=== PATIENT | female | born 1955 | race Caucasian/White ===

== ENCOUNTER 2017-08-18 13:15 | Outpatient (CLI) | payer BC | END 2017-08-18 13:16 | disposition home or self-care (01) | LOC: BICRAD 13:15 | PROVIDERS: ATTEND Family Medicine | DX: R05 Cough (principal) | CPT/HCPCS: 71046 ==

== ENCOUNTER 2017-10-13 15:25 | Outpatient (CLI) | payer OTHER | END 2017-10-13 15:26 | disposition home or self-care (01) | LOC: DTY/OP 15:25 | PROVIDERS: ATTEND Specialist | DX: Z01.818 Encounter for other preprocedural examination (principal); E66.01 Morbid (severe) obesity due to excess calories | CPT/HCPCS: 97802 ==

== ENCOUNTER 2017-12-23 12:00 | Inpatient (IN) | payer BC ==
[2017-12-29] MEDS ORDERED: Heparin 5,000 UNITS/ML VIAL ONE (06:08)
[2017-12-29] MEDS ORDERED: Scopolamine 1.5 mg/72 hour Patch ONE (06:09)
[2017-12-29] MEDS ORDERED: Ketorolac Tromethamine 30 MG/ML VIAL ONE (06:09)
[2017-12-29] MEDS ORDERED: cefOXitin 2 GM in Sodium Chloride 0.9% 100 ML IVPB SCH (06:15)
[2017-12-29] MEDS ORDERED: Bupivacaine/Epinephrine 0.25% 30 ML VIAL ONE (06:53)
[2017-12-29] MEDS ORDERED: Fentanyl 100 MCG/2 ML VIAL ONE ×2 (07:05→10:43)
[2017-12-29] MEDS ORDERED: Dexmedetomidine 200 MCG/2 ML VIAL ONE (07:05)
[2017-12-29] MEDS ORDERED: Midazolam HCl 2 mg/2 ml Vial ONE ×2 (07:09→10:22)
[2017-12-29] MEDS ORDERED: Phenylephrine HCL 10 MG/ML VIAL ONE (09:18)
[2017-12-29] MEDS ORDERED: Ondansetron HCl/PF 4 MG/2 ML Vial IVP PRN ×2 (10:24→11:40)
[2017-12-29] MEDS ORDERED: Morphine Sulfate 2 MG/ML SYRINGE SLOW IVP PRN (10:24)
[2017-12-29] MEDS ORDERED: Promethazine HCl 25 MG/ML VIAL SLOW IVP PRN (10:24)
[2017-12-29] MEDS ORDERED: Promethazine HCl 25 MG/ML VIAL IM PRN ×2 (10:24→11:40)
[2017-12-29] MEDS ORDERED: diphenhydrAMINE 50 MG/ML VIAL IVP PRN (11:40)
[2017-12-29] MEDS ORDERED: Dextrose 5% in Water 1,000 ML IV PRN (11:40)
[2017-12-29] MEDS ORDERED: hydrALAZINE 20 MG/ML VIAL SLOW IVP PRN (11:40)
[2017-12-29] MEDS ORDERED: Hydrocodone-Acetamin 15 ML UDCUP PO PRN (11:40)
[2017-12-29] MEDS ORDERED: Dextrose 50% Abboject 50 ML SYRINGE SLOW IVP PRN (11:40)
[2017-12-29 12:04] VITALS: BMI 36.5
--- NOTE | 2017-12-29 12:15 | OP ---
DATE OF PROCEDURE: 12/29/2017 PREOPERATIVE DIAGNOSIS: Morbid obesity. POSTOPERATIVE DIAGNOSIS: Morbid obesity. OPERATION PERFORMED: Laparoscopic vertical sleeve gastrectomy using the ViSiGi device. SURGEON: Dr. Uriel Skaggs. ANESTHESIA: General endotracheal. INDICATIONS: The patient is a 62-year-old white female. She presents with a long history of obesity. She has undergone preoperative evaluation and education and is taken to the operating room at this time for sleeve gastrectomy. DESCRIPTION OF OPERATION: Informed consent was obtained. The patient was taken to the operating room where general endotracheal anesthesia obtained with the patient in supine position. Abdomen was prepped with ChloraPrep and draped in sterile fashion. Local anesthetic was infiltrated and 5 mm supraumbilical incision was created through which Veress needle was passed to the peritoneal cavity and pneumoperitoneum established using carbon dioxide up to a pressure of 15 mmHg. A 5 mm trocar port was passed through this same incision. Laparoscopic camera was passed through this port. Under direct vision, 4 additional ports were placed including bilateral 5 mm subcostal ports, a 12 mm right paramedian port and a 15 mm left paramedian port. A 5 mm epigastric incision was created through which Nathansen retractor was passed into the abdominal cavity and used to retract the left lobe of the liver. The patient was placed into reverse Trendelenburg position. The ViSiGi device was advanced within the stomach and used to decompress this. The pylorus was identified and beginning 4 cm proximal to the pylorus, the omentum and vascular tissue along the greater curvature was divided using the LigaSure in an ascending fashion up to the angle of His. All posterior adhesions were mobilized. The short gastric vessels were carefully divided and then hemostasis was maintained using the LigaSure. Once this was completely mobilized, the ViSiGi was carefully positioned at the level of the pylorus and placed to suction, which was clearly defining the lesser curvature of the stomach. The gastrectomy was then performed using a series of fires of the Trooper stapler using a green load followed by a gold load and a series of blue loads until completion of the gastrectomy. The ViSiGi along the lesser curvature was used as a size 36 bougie to guide in the gastric division. Care was taken to avoid narrowing the incisura or the gastroesophageal junction. The integrity of the staple line was then assessed by insufflating gas through the ViSiGi while irrigating along the staple line. There was no evidence of an air leak. There was no evidence of bleeding along the staple line. The resected stomach was then removed through the 15 mm port and the fascia was closed with 0 Vicryl suture using a GraNee needle. I then closed the 12 mm port also using the GraNee needle and 0 Vicryl suture. The Nathansen retractor was removed. All ports and instruments were removed under direct vision. All irrigant was aspirated. Pneumoperitoneum was carefully evacuated. Quarter percent Marcaine with epinephrine was infiltrated into each port site. Skin edges approximated with 4-0 Monocryl subcuticular suture. Dermabond was placed externally. There were no complications. The patient tolerated the procedure well and was taken to recovery room in stable condition. FINDINGS: The patient, in spite of preoperative weight loss, has a fattier than usual liver. There was certainly an instrument related injury to the right lobe of the liver that required cautery. There was additionally some bleeding from the left tip of the liver. There was also some bleeding from the superior aspect of the spleen. This was controlled with Kody. The liver bleeding was controlled with electrocautery. Minor staple line oozing was controlled with hemaclip application. There were no complications. Blood loss was negligible. Patient tolerated the procedure well and was taken to recovery room in stable condition. TERA
[2017-12-29] MEDS: Ketorolac Tromethamine 30 MG/ML VIAL IVP SCH ×2 (12:23→17:25)
[2017-12-29] MEDS: D5 1/2 NS w/20 mEq KCL 1,000 ML IV SCH ×2 (12:24→19:28)
[2017-12-29] MEDS ORDERED: Glycopyrrolate 0.2 MG/ML 5 ML SYRINGE ONE (14:42)
[2017-12-29] MEDS ORDERED: PHENYLEPHRINE-NS 100 MCG/ML 10 ML SYRINGE ONE (14:42)
[2017-12-29] MEDS ORDERED: ePHEDrine/0.9% NaCl/PF SYRINGE 50 mg/10 ml ONE (14:42)
[2017-12-29] MEDS ORDERED: Ondansetron HCl/PF 4 MG/2 ML Vial ONE (14:42)
[2017-12-29] MEDS ORDERED: Dexamethasone 20 MG/5 ML VIAL ONE (14:42)
[2017-12-29] MEDS ORDERED: Lidocaine 1% PF 5 ML VIAL ONE (14:42)
[2017-12-29] MEDS ORDERED: PROPOFOL 200 MG/20 ML VIAL ONE (14:42)
[2017-12-30 05:12] LABS: #Eosinphils 0.1 thou/uL (0.0-0.7); #Lymphocytes 1.3 thou/uL (1.20-3.40); #Monocytes 0.9 thou/uL (0.11-0.59); #Neutrophils 10.6 thou/uL (1.40-6.50); %Basophils 0.1 % (0.0-1.0); %Eosinophils 0.5 % (0.0-10.0); %Lymphocytes 9.8 % (21.0-51.0); %Monocytes 7.1 % (0.0-10.0); %Neutrophils 82.6 % (42.0-75.0); Hemoglobin 11.9 g/dL (12.0-16.0); Mean Corpuscular HGB CONC 33.3 g/dL (32.0-36.0); Mean Corpuscular Hemoglobin 29.9 pg (27.0-31.0); Mean Corpuscular Volume 89.7 fl (81.0-99.0); Mean Platelet Volume 8.3 fL (7.4-10.4); Platelet Count 236 thou/uL (130-400); RBC Distribution Width 12.1 % (11.5-14.5); Red Blood Cell (RBC) Count 3.98 mill/uL (4.20-5.40); White Blood Cell (WBC) Count 12.9 thou/uL (4.8-10.8)
[2017-12-30] MEDS: Ketorolac Tromethamine 30 MG/ML VIAL IVP SCH ×3 (05:33→11:30)
[2017-12-30 05:35] LABS: Anion Gap 12 mmol/L (10-20); BUN (Urea Nitrogen) 9 mg/dL (9.8-20.1); Calc. Creatinine Clearance 104 mL/min (70-130); Calcium 9.1 mg/dL (7.8-10.44); Carbon Dioxide 25 mmol/L (23-31); Chloride 105 mmol/L (98-107); Estimated GFR-MDRD 68; Glucose 116 mg/dL (80-115); Potassium 3.9 mmol/L (3.5-5.1); Sodium 138 mmol/L (136-145)
[2017-12-30] MEDS: D5 1/2 NS w/20 mEq KCL 1,000 ML IV SCH (06:48)
[2017-12-30] MEDS ORDERED: Pantoprazole 40 MG VIAL IVP SCH (09:00)
[2017-12-30] MEDS ORDERED: Enoxaparin Sodium 40 MG/0.4 ML SYRINGE SC SCH (09:00)
[2017-12-30 11:57] VITALS: BP 134/76; TEMP 98.5
== END 2017-12-30 12:21 | disposition home or self-care (01) | DRG 621 ==
LOC: SURG A 12-29 05:53
PROVIDERS: ADMIT Specialist; ATTEND Specialist
PROC: 0DB64Z3 Excision of Stomach, Percutaneous Endoscopic Approach, Vertical (ICD-10-PCS; principal; 2017-12-29)
DX: E66.01 Morbid (severe) obesity due to excess calories (principal); Z68.36 Body mass index [BMI] 36.0-36.9, adult; K21.9 Gastro-esophageal reflux disease without esophagitis; I10 Essential (primary) hypertension
CPT/HCPCS: 36415; 80048; 85025; 88307; 88312; C9113; J0131; J0694; J1100; J1644; J1650; J1885; J2001; J2250; J2270; J2370; J2405; J2704; J3010; J7050

== ENCOUNTER 2017-12-23 12:46 | Outpatient (CLI) | payer BC | END 2017-12-23 12:47 | disposition home or self-care (01) | LOC: LABBT 12:46 | PROVIDERS: ATTEND Specialist | DX: Z01.810 Encounter for preprocedural cardiovascular examination (principal); E66.01 Morbid (severe) obesity due to excess calories | CPT/HCPCS: 93005; 93010 ==

== ENCOUNTER 2018-06-08 09:01 | Outpatient (CLI) | payer BC ==
--- NOTE | 2018-06-08 10:04 | BD ---
BONE DENSITOMETRY USING DEXA: Date: 06/08/18 HISTORY: Postmenopausal screening for osteoporosis. FINDINGS: Lumbar Spine: BMD (g/cm2) L1 0.936 T-Score: -0.5 Z-Score: 1.0 L2 0.987 T-Score: -0.4 Z-Score: 1.3 L3 0.937 T-Score: -1.3 Z-Score: 0.4 L4 1.017 T-Score: -0.4 Z-Score: 1.4 L1-L4 0.971 T-Score: -0.7 Z-Score: 1.0 Femoral Neck: 0.864 T-Score: -0.1 Z-Score: 1.6 Total Femur: 1.158 T-Score: 1.8 Z-Score: 2.9 IMPRESSION: Normal bone mineral density. No evidence of osteopenia/osteoporosis. POS: [facility]
== END 2018-06-08 09:02 | disposition home or self-care (01) ==
LOC: BICMAMMO 09:01
PROVIDERS: ATTEND Family Medicine
DX: Z12.31 Encounter for screening mammogram for malignant neoplasm of breast (principal); Z13.820 Encounter for screening for osteoporosis
CPT/HCPCS: 77063; 77067; 77080

== ENCOUNTER 2018-07-30 16:51 | Emergency (ER) | payer BC ==
[2018-07-30 17:27] LABS: #Lymphocytes 0.7 thou/uL (1.20-3.40); #Monocytes 0.4 thou/uL (0.11-0.59); #Neutrophils 8.7 thou/uL (1.40-6.50); %Basophils 0.3 % (0.0-1.0); %Eosinophils 0.4 % (0.0-10.0); %Lymphocytes 6.7 % (21.0-51.0); %Neutrophils 88.6 % (42.0-75.0); Hemoglobin 14.1 g/dL (12.0-16.0); Mean Corpuscular HGB CONC 33.3 g/dL (32.0-36.0); Mean Corpuscular Hemoglobin 29.3 pg (27.0-31.0); Mean Corpuscular Volume 87.9 fL (78.0-98.0); Mean Platelet Volume 8.6 fL (7.4-10.4); Platelet Count 232 thou/uL (130-400); RBC Distribution Width 11.8 % (11.5-14.5); Red Blood Cell (RBC) Count 4.82 mill/uL (4.20-5.40); White Blood Cell (WBC) Count 9.8 thou/uL (4.8-10.8)
[2018-07-30 17:45] LABS: ALT (SGPT) 210 U/L (8-55); AST (SGOT) 480 U/L (5-34); Albumin 4.3 g/dL (3.4-4.8); Alkaline Phosphatase 128 U/L (40-150); Anion Gap 15 mmol/L (10-20); BUN (Urea Nitrogen) 12 mg/dL (9.8-20.1); Calc. Creatinine Clearance 0 mL/min (70-130); Calcium 9.8 mg/dL (7.8-10.44); Carbon Dioxide 23 mmol/L (23-31); Chloride 104 mmol/L (98-107); Estimated GFR-MDRD 69; Globulin 3.3 g/dL (2.4-3.5); Glucose 161 mg/dL (80-115); Lipase 27 U/L (8-78); Potassium 3.7 mmol/L (3.5-5.1); Protein, Total 7.6 g/dL (6.0-8.3); Sodium 138 mmol/L (136-145)
[2018-07-30 18:20] LABS: Bilirubin Small (Negative); Blood, Urine Negative (Negative); Clarity CLEAR (Clear); Glucose, Urine (Dipstick) Negative (Negative); Leukocyte Small (Negative); Nitrite Negative (Negative); Protein, Urine (Dipstick) Negative (Neg-Trace); Specific Gravity, Urine 1.024 (1.002-1.036)
[2018-07-30 18:21] LABS: Bacteria/HPF None Seen HPF (None Seen); Hyaline Casts/LPF 0-3 HYALINE CAST LPF (0-3 Hyaline); Pathc Cast-AUWi Flag 0.14 (0-2.49); Squamous Epithelial 0-3 HPF (0-3); WBC/HPF 0-3 HPF (0-3)
--- NOTE | 2018-07-30 20:06 | ULT ---
GALLBLADDER ULTRASOUND: CLINICAL HISTORY: Right upper quadrant pain. FINDINGS: There is moderate distention of the gallbladder. There are small, mobile gallstones seen within the lumen. A moderate area of pericholecystic edema is seen. Telles sign is reported as negative by the quality control engineer. The common duct is normal, measuring 3 mm. The gallbladder wall is borderline, approx imating 3 mm in thickness. IMPRESSION: Moderate distention of the gallbladder with cholelithiasis and mild pericholecystic edema. Recommend clinical correlation for evidence of cholecystitis. POS: [facility]
== END 2018-07-30 20:12 | disposition home or self-care (01) ==
LOC: ERS 16:51
DX: K80.20 Calculus of gallbladder without cholecystitis without obstruction (principal)
CPT/HCPCS: 36415; 76705; 80053; 81003; 81015; 83690; 84484; 85025; 93005; 96360

== ENCOUNTER 2018-08-03 07:10 | Day surgery (SDC) | payer BC ==
[2018-08-02 17:23] VITALS: BMI 30.4
[2018-08-03] MEDS ORDERED: CEFAZOLIN 2 GM/50 ML BAG ONE (07:47)
[2018-08-03] MEDS ORDERED: Ketorolac Tromethamine 30 MG/ML VIAL ONE (07:47)
[2018-08-03] MEDS ORDERED: Bupivacaine/Epinephrine 0.25% 30 ML VIAL ONE (08:48)
[2018-08-03] MEDS ORDERED: Fentanyl 100 MCG/2 ML VIAL ONE (09:00)
[2018-08-03] MEDS ORDERED: Midazolam HCl 2 mg/2 ml Vial ONE (09:00)
[2018-08-03] MEDS ORDERED: SUGAMMADEX SODIUM 200 MG/2 ML VIAL ONE (10:01)
[2018-08-03] MEDS ORDERED: HYDROcodone/Acetaminophen 5/325 mg Tablet ONE (11:53)
[2018-08-03] MEDS ORDERED: PROPOFOL 200 MG/20 ML VIAL ONE (14:02)
[2018-08-03] MEDS ORDERED: Ondansetron PF 4 MG/2 ML Vial ONE (14:02)
[2018-08-03] MEDS ORDERED: Glycopyrrolate 0.2 MG/ML 5 ML SYRINGE ONE (14:02)
[2018-08-03] MEDS ORDERED: Dexamethasone 20 MG/5 ML VIAL ONE (14:02)
[2018-08-03] MEDS ORDERED: Rocuronium Bromide 10 MG/ML (10ML VIAL) ONE (14:02)
[2018-08-03] MEDS ORDERED: ePHEDrine/0.9% NaCl/PF SYRINGE 50 mg/10 ml ONE (14:02)
[2018-08-03] MEDS ORDERED: Lidocaine 1% PF 5 ML VIAL ONE (14:02)
--- NOTE | 2018-08-03 15:08 | OP ---
DATE OF PROCEDURE: 08/03/2018 PREOPERATIVE DIAGNOSIS: Symptomatic cholelithiasis. POSTOPERATIVE DIAGNOSIS: Symptomatic cholelithiasis. OPERATION PERFORMED: Laparoscopic cholecystectomy. ANESTHESIA: General endotracheal anesthesia. INDICATIONS: The patient is a 63-year-old white female, who presents with symptomatic cholelithiasis. She was taken to the operating room at this time for laparoscopic cholecystectomy. DESCRIPTION OF PROCEDURE: Informed consent was obtained. The patient was taken to the operating room where general endotracheal anesthesia was obtained with the patient in the supine position. The abdomen was prepped with Betadine and draped in the usual sterile fashion. 0.25% Marcaine with epinephrine was infiltrated below the umbilicus and a 10 mm infraumbilical incision was created. A Veress needle was passed through this incision into the peritoneal cavity. A pneumoperitoneum was established using carbon dioxide up to a pressure of 15 mmHg. Local anesthetic was infiltrated and 3 additional 5 mm right upper quadrant incisions were created. Through the mid incision, a 5 mm port was passed into the peritoneal cavity. The camera was passed through this port and under direct vision, an 11 port was passed through the infraumbilical incision. The camera was replaced through this port, and under direct vision, 2 additional 5 mm ports were passed through the incisions already created. The gallbladder was grasped and retracted in a cephalad direction. Minimal adhesions were bluntly stripped away from the apex of the gallbladder, and the apex was retracted laterally and inferiorly. Careful dissection was carried out to the apex of the gallbladder to identify the cystic duct and cystic artery. These were each carefully dissected circumferentially. The duct was of normal caliber. Both the duct and the artery were divided between clips, leaving 2 on the side to remain within the abdomen. The gallbladder was then dissected out of the gallbladder fossa using electrocautery and removed through the infraumbilical port site. The fascia was closed with 0 Vicryl suture and a GraNee needle. The right upper quadrant was inspected and irrigated. All irrigant was aspirated. All ports and instruments were removed under direct vision. Pneumoperitoneum was carefully evacuated. Additional local anesthetic was infiltrated into each port site. The skin edges were approximated with 4-0 Monocryl subcuticular sutures, and Dermabond was placed externally. There were no complications. The patient tolerated the procedure well and was taken to the recovery room in stable condition. FINDINGS: The patient had no acute inflammation of her gallbladder. Only minimal adhesions to the gallbladder. The operation was performed without blood loss or complication. The duct was small and noninflamed. The patient tolerated the procedure well and was taken to the recovery room in stable condition. Job ID: [id number]
== END 2018-08-03 12:17 | disposition home or self-care (01) ==
LOC: SDC 07:10
PROVIDERS: ATTEND Specialist
PROC: 0FT44ZZ Resection of Gallbladder, Percutaneous Endoscopic Approach (ICD-10-PCS; principal; 2018-08-03)
DX: K80.10 Calculus of gallbladder with chronic cholecystitis without obstruction (principal); K82.8 Other specified diseases of gallbladder; I10 Essential (primary) hypertension; E66.01 Morbid (severe) obesity due to excess calories; Z68.30 Body mass index [BMI] 30.0-30.9, adult; Z79.899 Other long term (current) drug therapy; Z98.84 Bariatric surgery status
CPT/HCPCS: 88304; J0131; J1100; J1885; J2001; J2250; J2405; J2704; J3010

== ENCOUNTER 2020-05-23 10:48 | Outpatient (CLI) | payer BC ==
--- NOTE | 2020-05-23 11:15 | RAD ---
EXAM: 4 views of the left knee HISTORY: Intermittent knee pain since September COMPARISON: None FINDINGS: No knee effusion is seen. There is no evidence of acute fracture or dislocation. Very minim al tricompartmental osteophytes are seen. No soft tissue swelling is present. IMPRESSION: Mild left knee osteoarthritis without evidence of acute osseous abnormality.
== END 2020-05-23 10:49 | disposition home or self-care (01) ==
LOC: BICRAD 10:48
PROVIDERS: ATTEND Family Medicine
DX: M25.562 Pain in left knee (principal); M17.12 Unilateral primary osteoarthritis, left knee

== ENCOUNTER 2022-06-11 08:35 | Outpatient (CLI) | payer BC ==
[2022-06-11] MEDS ORDERED: GASTROGRAFIN 30 ML BOT ONE (11:23)
[2022-06-11] MEDS ORDERED: Iopamidol 370 76% 100 ML VIAL ONE (11:24)
== END 2022-06-11 08:36 | disposition home or self-care (01) ==
LOC: CT 08:35
PROVIDERS: ATTEND Internal Medicine Hematology & Oncology
DX: C50.412 Malignant neoplasm of upper-outer quadrant of left female breast (principal)
CPT/HCPCS: 71260; 74177; 78306; A9503

== ENCOUNTER 2022-06-11 14:04 | Outpatient (CLI) | payer BC ==
[2022-06-11 15:50] LABS: #Basophils 0.1 10x3/uL (0.0-0.2); #Eosinphils 0.4 10x3/uL (0.0-0.5); #Monocytes 0.7 10x3/uL (0.0-1.1); #Neutrophils 4.5 10x3/uL (1.5-8.4); %Eosinophils 5.8 % (0.0-6.0); %Monocytes 9.2 % (0.0-10.0); %Neutrophils 63.6 % (40.0-75.0); Hemoglobin 12.6 g/dL (12.0-15.5); Mean Corpuscular HGB CONC 32.4 g/dL (32.0-36.0); Mean Corpuscular Hemoglobin 28.8 pg (27.0-33.0); Mean Platelet Volume 10.7 fl (7.4-10.4); Platelet Count 266 10x3/uL (150-450); RBC Distribution Width 13.2 % (11.5-14.5); Red Blood Cell (RBC) Count 4.37 10x6/uL (3.90-5.03); White Blood Cell (WBC) Count 7.1 10x3/uL (3.5-10.5)
[2022-06-11 16:03] LABS: Anion Gap 14 mmol/L (10-20); BUN (Urea Nitrogen) 14 mg/dL (9.8-20.1); Calc. Creatinine Clearance 0 mL/min (70-130); Calcium 9.8 mg/dL (7.8-10.44); Carbon Dioxide 26 mmol/L (23-31); Chloride 105 mmol/L (98-107); Estimated GFR 60; Glucose 107 mg/dL (80-115); Potassium 4.5 mmol/L (3.5-5.1); Sodium 140 mmol/L (136-145)
== END 2022-06-11 14:05 | disposition home or self-care (01) ==
LOC: LABBT 14:04
PROVIDERS: ATTEND Specialist
DX: Z01.812 Encounter for preprocedural laboratory examination (principal); C50.912 Malignant neoplasm of unspecified site of left female breast
CPT/HCPCS: 80048; 85025

== ENCOUNTER 2022-06-15 10:00 | Day surgery (SDC) | payer BC ==
[2022-06-14 16:38] VITALS: BMI 34.3
[2022-06-15] MEDS ORDERED: Ketorolac Tromethamine 30 MG/ML VIAL ONE (10:23)
[2022-06-15] MEDS ORDERED: Acetaminophen 500 MG TAB ONE (10:23)
[2022-06-15] MEDS ORDERED: Midazolam HCl 2 mg/2 ml Vial ONE (14:00)
[2022-06-15] MEDS ORDERED: Lidocaine 1% (PF) 30 ML VIAL ONE (14:02)
[2022-06-15] MEDS ORDERED: Bupivacaine/Epinephrine 0.25% 30 ML VIAL ONE (14:02)
[2022-06-15] MEDS ORDERED: Famotidine/PF 20 mg/2ml Vial ONE (14:08)
[2022-06-15] MEDS ORDERED: fentaNYL PF 100 MCG/2 ML SYRINGE ONE (14:08)
[2022-06-15] MEDS ORDERED: CEFAZOLIN 2 GM VIAL ONE (14:10)
[2022-06-15] MEDS ORDERED: Sodium Chloride 0.9% 100 ML ONE (14:10)
[2022-06-15] MEDS ORDERED: PROPOFOL 200 MG/20 ML VIAL ONE (14:24)
[2022-06-15] MEDS ORDERED: Dexamethasone 20 MG/5 ML VIAL ONE (14:24)
[2022-06-15] MEDS ORDERED: ePHEDrine 50 MG/ML VIAL ONE (14:24)
[2022-06-15] MEDS ORDERED: Ondansetron PF 4 MG/2 ML Vial ONE (14:24)
== END 2022-06-15 17:16 | disposition home or self-care (01) ==
LOC: SDC 10:00
PROVIDERS: ATTEND Specialist
PROC: 02HV33Z Insertion of Infusion Device into Superior Vena Cava, Percutaneous Approach (ICD-10-PCS; principal; 2022-06-15)
PROC: 07963ZX Drainage of Left Axillary Lymphatic, Percutaneous Approach, Diagnostic (ICD-10-PCS; principal; 2022-06-15)
PROC: 0JH60WZ Insertion of Totally Implantable Vascular Access Device into Chest Subcutaneous Tissue and Fascia, Open Approach (ICD-10-PCS; principal; 2022-06-15)
DX: C50.912 Malignant neoplasm of unspecified site of left female breast (principal); E66.01 Morbid (severe) obesity due to excess calories; Z68.34 Body mass index [BMI] 34.0-34.9, adult; Z17.0 Estrogen receptor positive status [ER+]; Z79.899 Other long term (current) drug therapy; Z88.0 Allergy status to penicillin; Z98.84 Bariatric surgery status
CPT/HCPCS: 71045; 88173; 93005; 93010; C1788; J1100; J1642; J1885; J2001; J2250; J2405; J2704; J3490; S0028

== ENCOUNTER 2022-10-21 06:47 | Day surgery (SDC) | payer BC ==
[2022-10-20 09:39] VITALS: BMI 31.8
[2022-10-21] MEDS ORDERED: Acetaminophen 500 MG TAB ONE (10:46)
[2022-10-21] MEDS ORDERED: Ketorolac Tromethamine 30 MG/ML VIAL ONE (10:46)
[2022-10-21] MEDS ORDERED: CEFAZOLIN 2 GM VIAL ONE (10:47)
[2022-10-21] MEDS ORDERED: Sodium Chloride 0.9% 100 ML ONE (10:47)
[2022-10-21] MEDS ORDERED: Midazolam HCl 2 mg/2 ml Vial ONE (12:14)
[2022-10-21] MEDS ORDERED: Bupivacaine/Epinephrine 0.25% 30 ML VIAL ONE (12:18)
[2022-10-21] MEDS ORDERED: Isosulfan Blue 50 MG/5 ML VIAL ONE (12:18)
[2022-10-21] MEDS ORDERED: fentaNYL PF 100 MCG/2 ML SYRINGE ONE (12:30)
[2022-10-21] MEDS ORDERED: Lidocaine 2% PF 5 ML VIAL ONE (12:41)
[2022-10-21] MEDS ORDERED: Ondansetron PF 4 MG/2 ML Vial ONE (12:46)
[2022-10-21] MEDS ORDERED: Dexamethasone 20 MG/5 ML VIAL ONE (12:46)
[2022-10-21] MEDS ORDERED: Phenylephrine 10 MG/ML VIAL ONE (12:46)
[2022-10-21] MEDS ORDERED: PROPOFOL 200 MG/20 ML VIAL ONE (12:46)
[2022-10-21] MEDS ORDERED: Lidocaine 1% PF 5 ML VIAL ONE (12:46)
[2022-10-21] MEDS ORDERED: ePHEDrine 50 MG/ML VIAL ONE (12:46)
== END 2022-10-21 15:35 | disposition home or self-care (01) ==
LOC: NM 06:47
PROVIDERS: ATTEND Specialist
DX: C50.512 Malignant neoplasm of lower-outer quadrant of left female breast (principal); E66.01 Morbid (severe) obesity due to excess calories; Z68.30 Body mass index [BMI] 30.0-30.9, adult; Z92.21 Personal history of antineoplastic chemotherapy; Z17.0 Estrogen receptor positive status [ER+]; Z79.899 Other long term (current) drug therapy; Z98.84 Bariatric surgery status
CPT/HCPCS: 19281; 76098; 78195; 88307; 88341; 88342; A9541; J1100; J1642; J1885; J2001; J2250; J2370; J2405; J2704; J3490; Q9968

== ENCOUNTER 2023-10-06 13:13 | Outpatient (CLI) | payer BC | END 2023-10-06 13:14 | disposition home or self-care (01) | LOC: BICMAMMO 13:13 | PROVIDERS: ATTEND Specialist | DX: Z08 Encounter for follow-up examination after completed treatment for malignant neoplasm (principal); Z85.3 Personal history of malignant neoplasm of breast | CPT/HCPCS: 77066; G0279 ==

== ENCOUNTER 2024-01-23 18:37 | Emergency (ER) | payer BC | END 2024-01-23 20:15 | disposition home or self-care (01) | LOC: ERS 18:37 | DX: S06.0X0A Concussion without loss of consciousness, initial encounter (principal); S01.01XA Laceration without foreign body of scalp, initial encounter; Z23 Encounter for immunization; W20.8XXA Other cause of strike by thrown, projected or falling object, initial encounter | CPT/HCPCS: 12001; 70450; 90471; 90715 ==

== ENCOUNTER 2024-05-09 14:20 | Outpatient (CLI) | payer BC | END 2024-05-09 14:21 | disposition home or self-care (01) | LOC: BICRAD 14:20 | PROVIDERS: ATTEND Family Medicine | DX: M47.22 Other spondylosis with radiculopathy, cervical region (principal); M54.50 Low back pain, unspecified; M47.816 Spondylosis without myelopathy or radiculopathy, lumbar region | CPT/HCPCS: 72040; 72100 ==

== ENCOUNTER 2024-05-15 10:02 | Outpatient (CLI) | payer BC | END 2024-05-15 10:03 | disposition home or self-care (01) | LOC: BICMAMMO 10:02 | PROVIDERS: ATTEND Family Medicine | DX: Z08 Encounter for follow-up examination after completed treatment for malignant neoplasm (principal); M54.50 Low back pain, unspecified; Z85.3 Personal history of malignant neoplasm of breast | CPT/HCPCS: 77066; G0279 ==

== ENCOUNTER 2024-08-24 08:54 | Outpatient (CLI) | payer OTHER | END 2024-08-24 08:55 | disposition home or self-care (01) | LOC: BICMAMMO 08:54 | PROVIDERS: ATTEND Nurse Practitioner Adult Health | DX: Z13.820 Encounter for screening for osteoporosis (principal); C50.412 Malignant neoplasm of upper-outer quadrant of left female breast; M85.89 Other specified disorders of bone density and structure, multiple sites | CPT/HCPCS: 77080 ==

== ENCOUNTER 2025-05-16 10:21 | Outpatient (CLI) | payer MEDICARE | END 2025-05-16 10:22 | disposition home or self-care (01) | LOC: BICMAMMO 10:21 | PROVIDERS: ATTEND Specialist | DX: Z12.31 Encounter for screening mammogram for malignant neoplasm of breast (principal); Z98.890 Other specified postprocedural states; Z85.3 Personal history of malignant neoplasm of breast | CPT/HCPCS: 77063; 77067 ==

== ENCOUNTER 2025-05-23 13:55 | Outpatient (CLI) | payer MEDICARE | END 2025-05-23 13:56 | disposition home or self-care (01) | LOC: BICRAD 13:55 | PROVIDERS: ATTEND Family Medicine | DX: R05.3 Chronic cough (principal) | CPT/HCPCS: 71046 ==